=== PATIENT | male | born 1950 ===

== ENCOUNTER 2022-08-13 18:00 | Outpatient (CLI) | payer MEDICARE, BC | END 2022-08-13 18:01 | disposition home or self-care (01) | LOC: SLEEPLAB 18:00 | PROVIDERS: ATTEND Internal Medicine | DX: G47.33 Obstructive sleep apnea (adult) (pediatric) (principal); R53.83 Other fatigue; E11.9 Type 2 diabetes mellitus without complications; E66.9 Obesity, unspecified; I10 Essential (primary) hypertension; Z68.42 Body mass index [BMI] 45.0-49.9, adult; R09.02 Hypoxemia | CPT/HCPCS: 95800 ==